=== PATIENT | male | born 1990 | race Caucasian/White ===

== ENCOUNTER 2022-03-13 10:07 | Emergency (ER) | payer SELFPAY ==
--- OUTSIDE RECORDS SUMMARY | 2022-03-13 10:10 | XMS REPORT | Continuity of Care Document ---
:1990 Author Organization [facility] t Address [address] [place] [place] [address] Care Team Providers Name Role Phone NONE, NONE Primary Care Physician Unavailable JOMAR FRANKS Attending Clinician Unavailable THEA DYE Attending Clinician Unavailable DR KEISHA FINCH Attending Clinician Unavailable EDDOC, GENERIC FOR EDM Attending Clinician Unavailable Physician, No Primary or Family Admitting Clinician Unavaila ble JOMAR FRANKS Admitting Clinician Unavailable THEA DYE Admitting Clinician Unavailable DR KEISHA FINCH Admitting Clinician Unavailable Payers Payer Name Policy Type Policy Number Effective Date Expiration Date S ource [id number] 1957 00:00:00 [id number] 1957 00:00:00 Problems Condition Condition Condition Status Onset Resolution Last Treating Co mments Source Name Details Category Date Date Treatment Clinician Date Neck pain Neck pain Problem [facility] (LUF/LI V/SA) Back pain Back pain Problem [facility] l (LUF/LI V/SA) Rash Rash Disease [facility] l Non-suicid Non-suicid Disease Active [facility] al self al self 06-15 st harm harm 00:00: Hospita 00 l 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, disorder, 00:00: Hosp patrick mild, mild, 00 l abuse abuse Nicotine Nicotine Disease Recurre Meth jone use use nce 06-14 st disorder disorder 00:00: Hospit a 00 l BILAT BILAT Problem Active [facility] FLANK PAIN FLANK PAIN Jhoana kes Memoria l (LUF/LI V/SA) Hemorrhoid Hemorrhoid Problem Active [facility] (LUF/LI V/SA) Allergies, Adverse Reactions, Alerts Allergy Allergy Status Severity Reaction(s) Onset Inactive Treating Comm ents Source Name Type Date Date Clinician Amoxicil Propensi Active [facility] to 04-01 st Clavulan adverse 00:00: Hospita ate reaction 00 l s to drug Ciproflo Propensi Active Anaphylaxis M ethodi xacin ty to 04-01 st adverse 00:00: Hospita reaction 00 l s to drug No Known DA Active Unknown [facility] Allergie 00:00: Memoria s 00 l (LUF/LI V/SA) clavulan DA Active [facility] acid 4[facility]04 Clear 00:00: [place] 00 [facility] amoxicil DA Active [facility] 4[facility]04 Clear 00:00: Duarte 00 [facility] clavulan DA Active U UNKNOWN [facility] ic acid 4-04 Clear 00:00: Duarte [facility] amoxicil DA Active U UNKNOWN [facility] 4-04 Clear 00:00: Duarte 00 [facility] Social History Social Habit Start Date Stop Date Quantity Comments Source History of tobacco Smokes tobacco [facility] use daily Hospital Alcohol intake 2017-10-28 2017-10-28 Current [employer] 00:00:00 00:00:00 non-drinker of Hospital alcohol (finding) Cigarettes smoked 2017-06-13 2017-06-[address] current (pack per 00:00:00 00:00:00 Hospita l day) - Reported Tobacco use and 2017-06-13 2017-06-13 User of smokeless [facility] exposure 00:00:00 00:00:00 tobacco Hospital Sex Assigned At [birth year] [employer] 00:00:00 00:00:00 Hospital Smoking Status Start Date Stop Date Source [facility] (LUF/SHALINI/SA) Smokes tobacco daily 2017-06-13 00:00:00 [facility] Medications Ordered Filled Start Stop Current Ordering Indication Dosage Frequency Signature Comments Components Source Medication Medication Date Date Medication? Clinician (SIG) Name Name No known No No known Metho di medications 10-[address] 21:20: s Hospita 43 l cephalexin cephalexin Yes 500mg 3xD [facility] 500 [facility] 500 mg [facility] capsule capsule Memoria l (LUF/LI V/SA) cephalexin cephalexin Yes 500mg [facility]xD [facility] 500 mg 500 mg [facility] capsule capsule Memoria l (LUF/LI V/SA) hydrocortis hydrocortis Yes [address] one acetate one acetate L ukes 10 MG/ML / 10 MG/ML / Mem oria pramoxine pramoxine l hydrochlori hydrochlori ( LUF/LI de 10 MG/ML de 10 MG/ML V /SA) Rectal Foam Rectal Foam ondansetron ondansetron Yes 4mg 3xD [facility] 4 mg 4 mg [facility] disintegrat disintegrat M emoria ing tablet ing tablet l (LUF/LI V/SA) polyethylen polyethylen Yes 17g [facility]xD [facility] e glycol e glycol [facility] 3350 [id number] Mem oria MG Powder MG Powder l for Oral for Oral (LUF/LI Solution Solution V/SA) silver silver Yes [address] sulfadiazin sulfadiazin L ukes e 10 MG/ML e 10 MG/ML Mem oria Topical Topical l Cream Cream (LUF/LI V/SA) tramadol tramadol Yes 50mg [address]xD [facility] hydrochlori hydrochlori L ukes de 50 MG de 50 MG Memoria Oral Tablet Oral Tablet l (LUF/LI V/SA) tramadol tramadol Yes 50mg [facility]xD [facility] hydrochlori hydrochlori L ukes de 50 MG de 50 MG Memoria Oral Tablet Oral Tablet l (LUF/LI V/SA) cephalexin cephalexin Yes 500mg 3xD orally [facility] 500 mg 500 mg every 8 [facility] capsule capsule hours (for Mem oria 7 days) l (LUF/LI V/SA) cephalexin cephalexin Yes 500mg 2xD orally [facility] 500 mg 500 mg every 12 [facility] capsule capsule hours Memoria l (LUF/LI V/SA) hydrocortis hydrocortis Yes 1 4xD rectally [address] one acetate one acetate times per [facility] 10 MG/ML / 10 MG/ML / day as M emoria pramoxine pramoxine needed. l hydrochlori hydrochlori (as needed (LUF/LI de 10 MG/ML de 10 MG/ML for V /SA) Rectal Foam Rectal Foam hemorrhoid s) ondansetron ondansetron Yes 4mg 3xD orally [facility] 4 mg 4 mg every 8 [facility] disintegrat disintegrat hours as Memoria ing tablet ing tablet needed. l (for (LUF/LI nausea/vom V/SA) iting) polyethylen polyethylen Yes 17g 1xD orally [facility] e glycol e glycol daily [facility] 3350 [id number] [id number] Mem oria MG Powder MG Powder l for Oral for Oral (LUF/LI Solution Solution V/SA) silver silver Yes [address] [facility] sulfadiazin sulfadiazin 2 times [facility] e 10 MG/ML e 10 MG/ML per day Memoria Topical Topical (apply a l Cream Cream 1.5 mm (LUF/LI thickness) V/SA) tramadol tramadol Yes 50mg 3xD orally [facility] t hydrochlori hydrochlori every 8 [facility] de 50 MG de 50 MG hours as Mem oria Oral Tablet Oral Tablet needed. l (as needed (LUF/LI for pain) V/SA) tramadol tramadol Yes 50mg 3xD orally [facility] t hydrochlori hydrochlori every 8 [facility] de 50 MG de 50 MG hours as Mem oria Oral Tablet Oral Tablet needed. l (as needed (LUF/LI for pain) V/SA) Vital Signs Vital Name Observation Time Observation Value Comments Source Height 2021-12-12 16:55:00 177.8 CM Weight 2021-12-12 16:55:00 117.3 KG Height 2021-12-04 18:35:00 177.8 CM Weight 2021-12-04 18:35:00 109.09 KG Height 2021-10-25 05:11:00 180.34 CM Weight 2021-10-25 05:11:00 113.39 KG Height 2021-10-16 08:22:00 180.34 CM Weight 2021-10-16 08:22:00 108.86 KG Height 2021-10-15 04:02:00 170.18 CM Weight 2021-10-15 04:02:00 108.86 KG Height 2020-04-28 06:54:00 177.8 CM Weight 2020-04-28 06:54:00 95.25 KG Height 2019-08-02 12:22:00 177.8 CM Weight 2019-08-02 12:22:00 108.86 KG Body Temperature 2021-12-12 16:55:00 97.9 [degF] [facility] (LUF/SHALINI/SA) Pulse Rate 2021-12-12 16:55:00 103 /min [facility] (LUF/SHALINI/SA) Respiratory Rate 2021-12-12 16:55:00 18 /min [facility] (F/SHALINI/SA) O2% BldC Oximetry 2021-12-12 16:55:00 97 % [facility] (LUF/SHALINI/SA) BP Systolic 2021-12-12 16:55:00 113 mm[Hg] [facility] (LUF/SHALINI/SA) BP Diastolic 2021-12-12 16:55:00 78 mm[Hg] [facility] (LUF/SHALINI/SA) Height 2021-12-12 16:55:00 70 [in_i] [facility] (LUF/SHALINI/SA) Weight 2021-12-12 16:55:00 117.3 kg [facility] (LUF/SHALINI/SA) BMI (Body Mass Index) 2021-12-12 16:55:00 37.4 kg/m2 [facility] (LUF/SHALINI/SA) Body Temperature 2021-12-04 18:35:00 98.7 [degF] [facility] (LUF/SHALINI/SA) Pulse Rate 2021-12-04 18:35:00 109 /min [facility] (LUF/SHALINI/SA) Respiratory Rate 2021-12-04 18:35:00 20 /min [facility] (LUF/SHALINI/SA) O2% BldC Oximetry 2021-12-04 18:35:00 97 % [facility] (LUF/SHALINI/SA) BP Systolic 2021-12-04 18:35:00 137 mm[Hg] [facility] (LUF/SHALINI/SA) BP Diastolic 2021-12-04 18:35:00 75 mm[Hg] [facility] (LUF/SHALINI/SA) Height 2021-12-04 18:35:00 70 [in_i] [facility] (LUF/SHALINI/SA) Weight 2021-12-04 18:35:00 109.09 kg [facility] (LUF/SHALINI/SA) BMI (Body Mass Index) 2021-12-04 18:35:00 34.8 kg/m2 [facility] (LUF/SHALINI/SA) Body Temperature 2021-10-25 05:11:00 97.9 [degF] [facility] (LUF/SHALINI/SA) Pulse Rate 2021-10-25 05:11:00 103 /min [facility] (LUF/SHALINI/SA) Respiratory Rate 2021-10-25 05:11:00 18 /min [facility] (LUF/SHALINI/SA) O2% BldC Oximetry 2021-10-25 05:11:00 95 % [facility] (LUF/SHALINI/SA) BP Systolic 2021-10-25 05:11:00 154 mm[Hg] [facility] (LUF/SHALINI/SA) BP Diastolic 2021-10-25 05:11:00 96 mm[Hg] [facility] (LUF/SHALINI/SA) Height 2021-10-25 05:11:00 71 [in_i] [facility] (LUF/SHALINI/SA) Weight 2021-10-25 05:11:00 250 [lb_av] [facility] (LUF/SHALINI/SA) BMI (Body Mass Index) 2021-10-25 05:11:00 34.9 kg/m2 [facility] (LUF/SHALINI/SA) Body Temperature 2021-10-16 08:22:00 98 [degF] [facility] (LUF/SHALINI/SA) Pulse Rate 2021-10-16 08:22:00 90 /min [facility] (LUF/SHALINI/SA) Respiratory Rate 2021-10-16 08:22:00 18 /min [facility] (LUF/SHALINI/SA) O2% BldC Oximetry 2021-10-16 08:22:00 98 % [facility] (LUF/SHALINI/SA) BP Systolic 2021-10-16 08:22:00 107 mm[Hg] [facility] (LUF/SHALINI/SA) BP Diastolic 2021-10-16 08:22:00 76 mm[Hg] [facility] (LUF/SHALINI/SA) Height 2021-10-16 08:22:00 71 [in_i] [facility] (LUF/SHALINI/SA) Weight 2021-10-16 08:22:00 240 [lb_av] [facility] (LUF/SHALINI/SA) BMI (Body Mass Index) 2021-10-16 08:22:00 33.5 kg/m2 [facility] (LUF/SHALINI/SA) Pulse Rate 2020-04-28 09:03:00 119 /min [facility] (LUF/SHALINI/SA) Respiratory Rate 2020-04-28 09:03:00 16 /min [facility] (LUF/SHALINI/SA) O2% BldC Oximetry 2020-04-28 09:03:00 97 % [facility] (LUF/SHALINI/SA) BP Systolic 2020-04-28 09:03:00 133 mm[Hg] [facility] (LUF/SHALINI/SA) BP Diastolic 2020-04-28 09:03:00 76 mm[Hg] [facility] (LUF/SHALINI/SA) Body Temperature 2020-04-28 06:54:00 99.8 [degF] [facility] (LUF/SHALINI/SA) Height 2020-04-28 06:54:00 70 [in_i] [facility] (LUF/SHALINI/SA) Weight 2020-04-28 06:54:00 210 [lb_av] [facility] (LUF/SHALINI/SA) BMI (Body Mass Index) 2020-04-28 06:54:00 30.4 kg/m2 [facility] (LUF/SHALINI/SA) Procedures This patient has no known procedures. Encounters Start End Encounter Admission Attending Care Care Encounter Source Date/Time Date/Time Type Type Clinicians Facility Department ID 2019-11-30 Inpatient [facility] [id number] [facility] 11:06:00 [facility] 2019-11-29 Inpatient [facility] [id number] [facility] 21:14:00 48 [facility] 2021-12-12 2021-12-12 PROC&TX 1 JOMAR FRANKS ST[facility] EMD [id number] 16:28:00 18:19:00 NOT [facility] OUT PT l LEAVE (LUF/LI V/SA) 2021-12-12 2021-12-12 Inpatient [facility] [id number] [facility] 00[facility]:00 [facility] [id number] [place], [id number] [id number] [place], ([place] [address] 2021-12-12 2021-12-12 Inpatient [facility] [id number] 00:00:00 00:00:00 [facility] [id number] Winsome N, [address] [id number] [address] [id number] l [place]PASS, (LUF/[place] [address] 2021-12-04 2021-12-04 BURN 1 THEA DYE [facility] [id number] 18:33:00 20:12:00 [facility] LT FOOT N, [address] l ENC [place], (LUF/[place] [address] 2021-12-04 2021-12-04 Inpatient [facility] [id number] [facility] 00:00:00 [facility] [id number] [facility] N, [address] [id number] [address] [id number] l [place], (LUF/[place] [address] 2021-12-04 2021-12-04 Inpatient [facility] [id number] [facility] 00:00:00 [facility] [id number] [facility] N, [address] [id number] [address] [id number] l [place], (LUF/[place] [address] 2021-10-25 2021-10-25 HEADACHE 1 THEA DYE [facility] EMD [id number] [facility] [facility] St 05:10:00 06:53:00 UNSPECIFIE Lucio es D Memoria l (LUF/LI V/SA) 2021-10-25 2021-10-25 Inpatient [facility] [id number] [facility] 00:[facility]00 00:00:00 [facility] [id number] [facility] N, [address] [id number] [address] [id number] l [place], (LUF/[place] [address] 2021-10-16 2021-10-16 CERVICALGI 1 THEA DYE [facility] EMD [id number] 08:21:00 09:41:00 A [facility] (LUF/LI V/SA) 2021-10-16 2021-10-16 Inpatient [facility] [id number] 00:00:00 00:00:00 [facility] [id number] [facility] N, [address] [id number] [id number] l [place], (LUF/[place] [address] 2021-10-16 2021-10-16 Inpatient [facility] [id number] [facility] 00:[facility]:00 00:00:00 DOLLY CALLE [id number] [facility] N, [address] [id number] [address] [id number] l [place], (LUF/[place] [address] 2021-10-15 2021-10-15 Emergency 1 STEF [facility] EMD [id number] 03:48:00 06:04:00 KEISHA [facility] (LUF/LI V/SA) 2020-04-28 2020-04-28 DORSALGIA 1 DYETHEA [facility] EMD [id number] 06:52:00 09:06:00 UNSPECIFIE Lucio es D Memoria l (LUF/LI V/SA) 2020-04-28 2020-04-28 Inpatient [facility] [id number] 00:00:00 00:00:00 [facility] [id number] [facility] N, [address] [id number] [address] [id number] l [place]PASS, (LUF/[place] [address] 2019-11-30 2019-11-30 Outpatient EDDOC, [facility] [id number] [facility] 14:46:00 14:46:[address] 2019-08-02 2019-08-02 Emergency 1 [facility] EMD [id number] 12:21:00 12:21:00 [facility] (LUF/LI V/SA) Results Test Description Test Time Test Comments Results Result Comments Source COVID EXTENDED PANEL 2021-10-25 06:27:00 Test Item Value Reference Range Interpretation Comme nts COVID-19, Real Time PCR-SALENA (test code = Negative Negative N COVID) FT (test code = FLUAPCR) Negative (qualifier value) Negative N FT (test code = FLUBPCR) Negative (qualifier value) Negative N FT (test code = RSV) Negative (qualifier value) Negative N FIRST TEST: (test code = COVO.FT) U EMPLOYEE IN HEALTHCARE: (test code = U COVO.EMP) SYMPTOMATIC DEFINED BY CDC: (test code = U COVO.SYMPH) HOSPITALIZED: (test code = COVO.HOSP) U ADMITTED TO ICU: (test code = COVO.ICU) U RESIDENT IN CONGREGATE CARE (test code = U COVO.MO) : (test code = COVO.PREG) Not [id number] 05:32:00 Test Item Value Reference Range Interpretation Comments Ammonia (test code = EDMUND) 30 umol/L 9-33 [id number] 05:19:00 Test Item Value Reference Range Interpretation Comments Glucose (test code 118 mg/dl 75-110 H = GLU) BUN (test code = 13.0 mg/dl 6.0-17.0 BUN) Creatinine (test 0.9 mg/dl 0.4-1.2 code = CREA) Sodium (test code = 140 mmol/l 137-145 NA) Anion Gap (test 7 mmol/l 5-15 code = GAP) Potassium (test 3.8 mmol/l 3.5-5.0 code = K) Chloride (test code 108 mmol/l 98-107 H = CL) CO2 (test code = 25 mmol/l 22-30 CO2) Calcium (test code 9.4 mg/dl 8.4-10.2 = CALC) T Protein (test 8.0 gm/dl 5.1-8.7 code = TP) Albumin (test code 3.9 gm/dl 3.5-4.6 = ALB) A/G Ratio (test 1.0 % 1.1-2.2 L code = AGRAT) AST (SGOT) (test 20 U/L 11-36 code = AST) ALT (SGPT) (test 32 U/L 11-40 code = ALT) Alkaline Phos (test 62 U/L 47-114 code = ALKP) Total Bilirubin 0.5 mg/dl 0.2-1.2 (test code = TBIL) Globulin (test code 4.1 gm/dl 2.3-3.5 H = GLOBU) Calcium, Corrected 9.5 mg/dl 8.4-10.2 Various f ormulas exist (test code = for corrected s alejandra CALCCORR) calcium results , each yielding differ ent values. This co rrected result was base d on the formula: Co rrected Calcium = Serum Calcium + [0.8 * ( 4 - SerumAlbumin)] EGFR if >60 [place] (test code mL/min/1.73m\\ = EGFRAA) S\\2 EGFR if Non- >60 Estimate d Glomerular [place] (test code mL/min/1.73m\\ Filtrat ion Rate (eGFR) = EGFRNA) S\\2 Reference Inter vals Decision Points for 18 years and older and average body ma ss: >= 60 Does not exc lude kidney disease. 30 - 59 Suggests mod erate chronic kidney disease and indicates t he need for further investigation including asses sment of proteinuria and cardiovascular factors. < 30 U sually indicates a nee d for referral for assessment and management of c hronic kidney failure. STLMLCORONAVIRUS 2018 CEPHEID [id number] 05:10:00 Test Item Value Reference Range Interpretation Comments COVID-19, Real Time PCR-SALENA (test NEGATIVE Negative AA code = COVID) FIRST TEST: (test code = COVO.FT) U EMPLOYEE IN HEALTHCARE: (test code = U COVO.EMP) SYMPTOMATIC DEFINED BY CDC: (test U code = COVO.SYMPH) HOSPITALIZED: (test code = U COVO.HOSP) ADMITTED TO ICU: (test code = U COVO.ICU) RESIDENT IN CONGREGATE CARE (test U code = COVO.MO) : (test code = COVO.PREG) k [place] [facility] This test is performed for stat results in [facility]STLMLACETAMINOPHEN (Tyenol)2021-10-15 05:04:00 Test Item Value Reference Range Interpretation Comments Acetaminophen (test code = ACET) <2 ug/ml 10-25 L [id number] 05:04:00 Test Item Value Reference Range Interpretation Comments Magnesium (test code = MG) 1.9 mg/dl 1.6-2.6 STLMLALCOHOL, [id number] 05:04:00 Test Item Value Reference Range Interpretation Comments Alcohol % (test code = 0 % 0.00-0.00 N Kiko ol % 0.00 - 0.10 ALCPC) Sub-clinical 0. 11 - 0.20 Emotional Insta bility 0.21 - 0.30 Confusio n 0.31 - 0.40 Stupor 0.4 1 - 0.50 Coma >.50 Fatal STLMLHIGH SENSITIVITY [id number] 05:03:00 Test Item Value Reference Range Interpretation Comments HIGH SENSITIVITY 3.1 ng/L 0.0-53.0 CHANGE IN T EST METHOD TROPONIN (test code = Tanja lizama in the test TNIH) method for Trop onin has gone into e ffect. We now test for High Sensitivity Tro ponin. The new units o f measure are pg/ mL, and the new 99th percentile cuto ff of 34 pg/mL for FE MALE and 53 pg/mL fo r MALE. New critical va lues will be called for any troponin greate r than or equal to 500 pg/mL. STLMLSALICYLATES (Aspirin)2021-10-15 05:02:00 Test Item Value Reference Range Interpretation Comments Salicylate (test code <1.7 mg/dl 0.0-30.0 N Salicy lates Reference = SALI) Ranges: [place] utic 15 - 30 mg/dl [place] >30 mg/dl [place] l >70 mg/dl STLMLDRUG SCREEN [id number] 04:49:00 Test Item Value Reference Range Interpretation Comments PH (test code = 7.5 UPH) Specific [place] 1.020 (test code = USPGR) Amphetamines (test Positive code = AMPHET) FT (test code = Negative TANIA) (qualifier value) FT (test code = Negative BENZO) (qualifier value) FT (test code = Negative NEVAEH) (qualifier value) FT (test code = Negative MTD) (qualifier value) FT (test code = Negative OPIAT) (qualifier value) FT (test code = Negative The followin g table PCP) (qualifier provides an value) interpretive gu christian for the Drugs o f Abuse ran on [employer] [place] analyzer listed there in: Amphetamine s < 1000 ng/ml = Ne gative Barbituates < 2 00 ng/ml = Negativ e Benzodiazapines < 200 ngml = Negative Cocaine < 300 n g/ml = Negative Methad one < 300 ng/ml = Neg ative Opiate < 300 ng /ml = Negative PCP < 25 ng/ml = Negativ e THC < 50 ng/ml = Ne gative Results equal t o or greater than th e above cut-off v alues = Presumptive Positive. Confirmation of Presumptive Pos itive results are niesha ilable upon request. FT (test code = Negative THC) (qualifier value) STLMLURINALYSIS WITH [id number] 04:44:00 Test Item Value Reference Range Interpretation Comments Color (test code = Yellow UCOLR) Clarity (test code = Clear UCLAR) Glucose (test code = NEGATIVE NEGATIVE N UGLUC) Bilirubin (test code NEGATIVE NEGATIVE N = UBILI) Ketones (test code = 15 NEGATIVE A UKET) Specific [place] 1.020 1.005-1.030 A (test code = USPGR) Blood (test code = NEGATIVE NEGATIVE N UBLD) PH (test code = UPH) 7.5 4.5-8.0 A Protein (test code = NEGATIVE NEGATIVE N UPROT) Urobilinogen (test 0.2 See_Comment N [Automat ed code = U UROB) message] The system which generated this result transmit carlos reference range : 0.2. The refere nce range was not u sed to interpret th is result as normal/abnormal . Nitrite (test code = NEGATIVE NEGATIVE N UNITR) Leukocyte Esterase NEGATIVE NEGATIVE N (test code = ULEUK) WBC (test code = 0-3 NONE,0-1,2-5,6-1 AA WBCUR) 0 RBC (test code = 0-2 0-5 A RBCUR) Epithial Cells (test 0-3 0-10 A code = U EPI) Mucous (test code = Moderate None Seen A UMUC) Bacteria (test code 1+ None Seen,Trace A = UBACT) Crystals Urine (test Trace Amorphous None Seen A code = URCRYS) Urates STLMLCBC WITH AUTO [id number] 04:43:00 Test Item Value Reference Range Interpretation Comments WBC (test code = 11.30 4.80-10.80 H WBC) 10\\S\\3/ul RBC (test code = 4.90 10\\S\\6/ul 4.70-6.10 RBC) Hemoglobin (test 14.3 gm/dl 14.0-18.0 code = HGB) Hematocrit (test 41.3 % 42.0-50.0 L code = HCT) MCV (test code = 84.3 fL 80.0-94.0 MCV) MCH (test code = 29.2 pg 27.0-31.0 MCH) MCHC (test code = 34.6 gm/dl 33.0-37.0 MCHC) RDW (test code = 12.3 % 11.5-14.5 RDWVC) Platelet (test code 247 10\\S\\3/ul 130-400 = PLT) MPV (test code = 10.0 fL 7.4-10.4 A "NOT MEASUR ED" MPV) RESULTS ARE DIS PLAYED WHEN THE INSTRU MENT HAS A SUPPRESSE D OR UNREPORTABLE RE SULT. THIS WILL MOST OFTEN HAPPEN WITH THE MPV WHEN THERE IS A N ABNORMAL PLATEL ET DISTRIBUTION DU E TO A CRITICAL LOW VA LUE OR PLATELET CLUMPI NG. THE RDW MAY BE SUPPRESSED IF T HERE ARE MULTIPLE PE AKS PRESENT ON THE RBC HISTOGRAM. IN T HIS CASE, A MANUAL REVIEW OF THE SLIDE WI LL BE PERFORMED, AND RBC MORPHOLOGY WILL BE NOTED ON THE RE PORT. NE% (test code = 90.1 % 42.0-75.0 H NE) LY% (test code = 6.0 % 13.0-42.0 L LY) MO% (test code = 3.3 % 4.0-14.0 L MO) EO% (test code = 0.0 % 1.0-5.0 L EO) BA% (test code = 0.2 % 0.0-3.0 BA) IG% (test code = 0.4 % 0.0-0.4 IG%) [facility] HEAD W/O [id number] 04:30:57 [facility]/SA)Name: MACARENA WAN : 1990 Sex: MEXAMINATION: Head CT without contrast.HISTORY:Altered mental status, headache.COMPARISON:CT head from 06/23/2011.TECHNIQUE: Multidetector axial images were obtained from the foramen magnum tothe vertex without contrast. The images were reconstructed using brain and bonealgorithms. Thin section brain images were reformatted into coronal andsagittal planes.Dose modulation, iterative reconstruction, and/or weight based adjustment of themA/kV was utilized to reduce radiation dose to as low as reasonably achievable.Intravenous contrast: NoneIMAGE QUALITY: Acceptable.FINDINGS:Skull/scalp: No lytic or blastic. lesions. No surgical changes.Parenchyma: No abnormal density.No acute hemorrhage, mass or acute major vascular territorial infarct.Arteries: No density suggestive of thrombosis.Dural sinuses:No abnormal density suggestive of thrombosis.Ventricles: No hydrocephalus or displacement.Extra-axial spaces: No abnormal density.Brain volume: Normal for age.Craniocervical junction: No mass, Chiari malformation, or basilarinvagination.Sella: No mass.Paranasal/mastoid sinuses: Imaged portions unremarkable.IMPRESSION:No acute intracranial abnormality.This final report was electronically signed by Dr Jenny Thomas MD :25 AMDictated By: OCTAVIO THOMASADate: 10/15/2021 04:25STLMLCT ABDOMEN/PELVIS W/O CONTRAST 2020-04-28 08:48:50 [facility] [place]Name: MACARENA WAN : [id number] Sex: MEXAM: CT Abdomen and Pelvis WITHOUT contrastINDICATION: [id number]: Flank painCOMPARISON: CT a bdomen and pelvis dated June 23, 2011.TECHNIQUE: Abdomen and pelvis were scanned utilizing a multidetector helicalscanner from the lung base to the pubic symphysis without administration of IVcontrast. Absence of intravenous contrast decreases sensitivity for detection offocal lesions and vascular pathology. Coronal and sagittal reformations wereobtained. Routine protocol was performed.IV CONTRAST: NoneORAL CONTRAST: WaterCOMPLICATIONS: NoneRADIATION DOSE:Total DLP: 1382 mGy-cm.Estimated effective dose: (DLP x 0.015 x size factor) mSvCTDIvol has been reviewed. It is below the limits set by the Radi ationProtocol Committee (RPC).FINDINGS:LINES and TUBES: None.LOWER THORAX: UnremarkableHEPATOBILIARY: No focal hepatic lesions seen within the limitation ofnoncontrast exam. No biliary ductal dilation.GALLBLADDER: There is questionable 0.8 cm gallbladder polyp (sister, image 26).No radio-opaque stones or sludge. No gallbladder wall thickening.SPLEEN: No splenomegaly..PANCREAS: The unenhanced pancreasshows no focal masses. There is no ductaldilatation.ADRENALS: The adrenal glands are unremarkable.KIDNEYS/URETERS: No hydronephrosis. There is a right renal subcentimetercortical low-density lesion (series 2, image 37) too small to characterize. Nostones.GI TRACT: No abnormal distention, wall thickenin g, or evidence of bowelobstruction.PELVIC ORGANS/BLADDER: Unremarkable.LYMPH NODES: No lymphadenopathy.VESSELS: Vessels are incompletely evaluated due to lack of IV contrast. Howeverno definite aneurysm seen.PERITONEUM / RETROPERITONEUM: No free air or fluid.BONES: There is anterior wedging of T9 vertebral body of uncertain etiology.SOFT TISSUES: Unremarkable.IMPRESSION:1. No CT finding to correlate with the patient's flank pain. No evidence ofurolithiasis or hydronephrosis.2. Right renal subcentimeter cortical low- density lesion is too small tocharacterize.3. Anterior wedging of T9 vertebral body of uncertain etiology. This could bedue to old trauma. If clinically indicated this can be further evaluated withnonemergent CT thoracic spine.This final report was electronically signed by Dr Davian Elizondo MD04/28/2020 8:43 AMDictated By: Zina ELIZONDOte: 04/28/2020 08:43[facility]IVINGSTONURINALYSIS WITH [id number] 08:22:00 Test Item Value Reference Range Interpretation Comments Color (test code = UCOLR) Yellow Clarity (test code = UCLAR) Clear Glucose (test code = UGLUC) NEGATIVE NEGATIVE N Bilirubin (test code = UBILI) NEGATIVE NEGATIVE N Ketones (test code = UKET) NEGATIVE NEGATIVE N Specific [place] (test code = 1.015 1.005-1.030 A USPGR) Blood (test code = UBLD) NEGATIVE NEGATIVE N PH (test code = UPH) 6.0 4.5-8.0 A Protein (test code = UPROT) NEGATIVE NEGATIVE N Urobilinogen (test code = U UROB) 0.2 >0.2 N Nitrite (test code = UNITR) NEGATIVE NEGATIVE N Leukocyte Esterase (test code = NEGATIVE NEGATIVE N ULEUK) WBC (test code = WBCUR) 0-1 0-5 A RBC (test code = RBCUR) None Seen 0-5 A Epithial Cells (test code = U EPI) None Seen 0-10 A Mucous (test code = UMUC) None Seen None Seen N Bacteria (test code = UBACT) Trace None Seen,Trace N [facility] [id number] 15:31:00 Test Item Value Reference Range Interpretation Comments STREPTOCOCCUS DYSGALACTIAE NEGATIVE FOR G/C NEGATIVE (test code = STREPGC) STREPA MOLECULAR (test NEGATIVE FOR GRP A NEGATIVE code = STREPAMOL) [id number] 14:47:00 Test Item Value Reference Range Interpretation Comments CKMB (test code = CKMBT) 4.0 ng/mL 0-6.0 N URINALYSIS [id number] 13:26:00 Test Item Value Reference Range Interpretation Comments UA COLOR (test code = COLU) YELLOW YELLOW UA APPEARANCE (test code = CLEAR CLEAR APPU) UA GLUCOSE DIPSTICK (test NEGATIVE mg/dL NEGATIVE code = DGLUU) UA BILIRUBIN DIPSTICK (test NEGATIVE mg/dL NEGATIVE code = BILU) UA KETONE DIPSTICK (test code 40 (2+) mg/dL NEGATIVE A = KETU) UA SPECIFIC GRAVITY (test 1.024 1.001-1.035 code = SGU) UA BLOOD DIPSTICK (test code Negative mg/dL NEGATIVE = PRADIP) UA PH DIPSTICK (test code = 5.5 5.0-8.0 DARREN) UA PROTEIN DIPSTICK (test NEGATIVE mg/dL NEGATIVE code = PROU) UA UROBILINIOGEN DIPSTICK Normal mg/dL NEGATIVE (test code = URO) UA NITRITE DIPSTICK (test NEGATIVE NEGATIVE code = RADHA) UA LEUKOCYTE ESTERASE W NEGATIVE Ritesh/uL NEGATIVE REFLEX (test code = LEUUR) UA WBC (test code = WBCU) 0-5 per HPF 0-5 UA RBC (test code = RBCU) 0-2 #/HPF 0-5 UA EPITHELIAL CELLS (test FEW per HPF FEW code = EPIU) UA BACTERIA (test code = NONE SEEN #/HPF NONE BACU) UA HYALINE CAST (test code = 0-2 #/LPF 0-5 HYALU) UA MUCUS (test code = MUCU) FEW #/LPF FEW Urine Source? Clean CatchDRUGS OF ABUSE SCREEN [id number] 13:26:00 Test Item Value Reference Range Interpretation Comments URN COCAINE (test NEGATIVE <300 ng/mL code = COCAURN) URN CANNABINOIDS NEGATIVE <50 ng/mL (test code = CANNABURN) URN AMPHETAMINE (test POSITIVE <1000 ng/mL A This t est provides only a code = AMPHETURN) preliminar y test result. A morespecific alternate chemical method must be used in order t oobtain a confirmed rox tical result. Gas chromatography/ mass spectrometry (G C/MS) is thepreferred co nfirmatory method. Other c hemical confirmationmet hods are available. Clin ical consideration a nd professional ju dgment should be appli ed to any drug of abusete st result, particularly wh en preliminary pos itive resultsare used.Unconfirme d screening resul ts must not be used fornon-medical purposes (e.g., employme nt testing, legalt esting). URN BARBITURATE (test NEGATIVE <200 ng/mL code = BARBITURN) URN BENZODIAZEPINE NEGATIVE <200 ng/mL (test code = BENZOURN) URN OPIATES (test NEGATIVE <300 ng/mL code = OPIATURN) URN PHENCYCLIDINE NEGATIVE <25 ng/mL (PCP) (test code = PHENCURN) URN METHADONE (test NEGATIVE <300 ng/mL code = METHAURN) Urine Source? Clean Catch- XR CHEST 1 [id number] 13:06:00 FAX: Johnson Hnog NP [phone] [place]: St: REG Name: [facility]ARENA VILLELA [facility] : 1990 Age/S: 29/M [address] [facility] Unit #: [id number] Loc: [place] [address] Phys: Johnson Hong NP Acct: [id number] Dis Date: Status: REG ER PHONE #: [phone] Exam Date: 11/30/2019 1248 FAX #: [phone] Reason: CHEST PAIN EXAMS: CPT CODE: [id number] XR CHEST 1 V [id number] REASON FOR EXAM: CHEST PAIN Exam Order Date: 11/30/2019 11:13 AM Ordering M.D.: Johnson Hong NP PROCEDURE: - XR CHEST 1 V COMPARISON:Chest x-ray the previous night FINDINGS: The lungs are clear. There is no pleural effusion or pneumothorax. Pulmonary vascularity is within normal limits. Cardiomediastinal silhouette is normal in sizefor technique. The mediastinal contours are within normal limits. Musculoskeletal structures are within normal limits. The visualized upper abdomen is within normal limits. IMPRESSION: No acute cardiopulmonary process. Location: [facility] at 1306 Reported and signed by: Portillo Warren MD CC: Johnson Hong NP Technologist: Rachelle Michael) Trnmtrashid Date/Time/By: 11/30/2019 (0841) : By: Eleni.[email or web address] Orig Print D/T: S: 11/30/2019 (2676) PAGE 1 Signed ReportURINALYSIS COMPLETE 2019-11-30 13:05:00 Test Item Value Reference Range Interpretation Comments UA COLOR (test code = COLU) YELLOW YELLOW UA APPEARANCE (test code = CLEAR CLEAR APPU) UA GLUCOSE DIPSTICK (test NEGATIVE mg/dL NEGATIVE code = DGLUU) UA BILIRUBIN DIPSTICK (test NEGATIVE mg/dL NEGATIVE code = BILU) UA KETONE DIPSTICK (test code 40 (2+) mg/dL NEGATIVE A = KETU) UA SPECIFIC GRAVITY (test 1.024 1.001-1.035 code = SGU) UA BLOOD DIPSTICK (test code Negative mg/dL NEGATIVE = PRADIP) UA PH DIPSTICK (test code = 5.5 5.0-8.0 DARREN) UA PROTEIN DIPSTICK (test NEGATIVE mg/dL NEGATIVE code = PROU) UA UROBILINIOGEN DIPSTICK Normal mg/dL NEGATIVE (test code = URO) UA NITRITE DIPSTICK (test NEGATIVE NEGATIVE code = RADHA) UA LEUKOCYTE ESTERASE W NEGATIVE Ritesh/uL NEGATIVE REFLEX (test code = LEUUR) UA WBC (test code = WBCU) 0-5 per HPF 0-5 UA RBC (test code = RBCU) 0-2 #/HPF 0-5 UA EPITHELIAL CELLS (test FEW per HPF FEW code = EPIU) UA BACTERIA (test code = NONE SEEN #/HPF NONE BACU) UA HYALINE CAST (test code = 0-2 #/LPF 0-5 HYALU) UA MUCUS (test code = MUCU) FEW #/LPF FEW Urine Source? Clean CatchDRUGS OF ABUSE SCREEN [id number] 13:05:00 Test Item Value Reference Range Interpretation Comments URN COCAINE (test code = COCAURN) <300 ng/mL URN CANNABINOIDS (test code = <50 ng/mL CANNABURN) URN AMPHETAMINE (test code = AMPHETURN) <1000 ng/mL URN BARBITURATE (test code = BARBITURN) <200 ng/mL URN BENZODIAZEPINE (test code = <200 ng/mL BENZOURN) URN OPIATES (test code = OPIATURN) <300 ng/mL URN PHENCYCLIDINE (PCP) (test code = <25 ng/mL PHENCURN) URN METHADONE (test code = METHAURN) <300 ng/mL Urine Source? Clean CatchURINALYSIS [id number] 13:03:00 Test Item Value Reference Range Interpretation Comments UA COLOR (test code = COLU) YELLOW YELLOW UA APPEARANCE (test code = CLEAR CLEAR APPU) UA GLUCOSE DIPSTICK (test NEGATIVE mg/dL NEGATIVE code = DGLUU) UA BILIRUBIN DIPSTICK (test NEGATIVE mg/dL NEGATIVE code = BILU) UA KETONE DIPSTICK (test code 40 (2+) mg/dL NEGATIVE A = KETU) UA SPECIFIC GRAVITY (test 1.024 1.001-1.035 code = SGU) UA BLOOD DIPSTICK (test code Negative mg/dL NEGATIVE = PRADIP) UA PH DIPSTICK (test code = 5.5 5.0-8.0 DARREN) UA PROTEIN DIPSTICK (test NEGATIVE mg/dL NEGATIVE code = PROU) UA UROBILINIOGEN DIPSTICK Normal mg/dL NEGATIVE (test code = URO) UA NITRITE DIPSTICK (test NEGATIVE NEGATIVE code = RADHA) UA LEUKOCYTE ESTERASE W NEGATIVE Ritesh/uL NEGATIVE REFLEX (test code = LEUUR) UA WBC (test code = WBCU) per HPF 0-5 UA RBC (test code = RBCU) per HPF 0-5 UA EPITHELIAL CELLS (test per HPF Few code = EPIU) UA BACTERIA (test code = per HPF NONE BACU) Urine Source? Clean CatchDRUGS OF ABUSE SCREEN [id number] 13:03:00 Test Item Value Reference Range Interpretation Comments URN COCAINE (test code = COCAURN) <300 ng/mL URN CANNABINOIDS (test code = <50 ng/mL CANNABURN) URN AMPHETAMINE (test code = AMPHETURN) <1000 ng/mL URN BARBITURATE (test code = BARBITURN) <200 ng/mL URN BENZODIAZEPINE (test code = <200 ng/mL BENZOURN) URN OPIATES (test code = OPIATURN) <300 ng/mL URN PHENCYCLIDINE (PCP) (test code = <25 ng/mL PHENCURN) URN METHADONE (test code = METHAURN) <300 ng/mL Urine Source? Clean CatchB-TYPE NATRIURETIC [id number] 12:41:00 Test Item Value Reference Range Interpretation Comments B-TYPE NATRIURETIC PEPTIDE 57.38 pgram/mL 0-100 N (test code = BNP) BASIC METABOLIC [id number] 12:38:00 Test Item Value Reference Range Interpretation Comments SODIUM (test code = 147 mmol/L 136-145 H NA) POTASSIUM (test code 3.4 mmol/L 3.5-5.1 L = K) CHLORIDE (test code = 116.0 mmol/L 98-107 H CL) CARBON DIOXIDE (test 21.0 mmol/L 21-32 N code = CO2) ANION GAP (test code 13.4 10-20 N = GAP) GLUCOSE (test code = 80 mg/dL 74-106 N GLU) BLOOD UREA NITROGEN 18 mg/dL 7-18 N (test code = BUN) GLOMERULAR FILTRATION > 60 mL/min >=60 Estima carlos GFR by RATE (test code = using Vivien fied MDRD GFR) formula.Chronic kidney disease is defined as eith er kidney damageor GFR <60 mL/min/1.73 m2 for >3 months. CREATININE (test code 1.20 mg/dL 0.7-1.3 N = CREAT) BUN/CREATININE RATIO 15.1 10-20 N (test code = BUN/CREA) CALCIUM (test code = 8.2 mg/dL 8.5-10.1 L CA) [id number] 12:38:00 Test Item Value Reference Range Interpretation Comments TROPONIN-I (test code = TROPI) <0.015 ng/mL 0-0.045 N HEPATIC FUNCTION [id number] 12:31:00 Test Item Value Reference Range Interpretation Comments TOTAL PROTEIN (test 7.1 gram/dL 6.4-8.2 N code = PROT) ALBUMIN (test code = 3.9 g/dL 3.4-5.0 N ALB) GLOBULIN (test code = 3.2 gram/dL 2.7-4.2 N GLOB) ALBUMIN/GLOBULIN RATIO 1.2 0.75-1.50 N (test code = A/G) BILIRUBIN TOTAL (test 0.80 mg/dL 0.0-1.0 N code = BILT) BILIRUBIN DIRECT (test 0.25 mg/dL 0.0-0.20 H code = BILD) SGOT/AST (test code = 32 IUnit/L 15-37 N AST) SGPT/ALT (test code = 46 IUnit/L 12-78 N ALT) ALKALINE PHOSPHATASE 64 IUnit/L 45-117 N Note change in TOTAL (test code = reference range due ALKP) to change in reagent. LACTIC [id number] 12:30:00 Test Item Value Reference Range Interpretation Comments LACTIC ACID (test code = LACT) 0.8 mmol/L 0.4-1.9 N BASIC METABOLIC [id number] 12:29:00 Test Item Value Reference Range Interpretation Comments SODIUM (test code = NA) 147 mmol/L 136-145 H POTASSIUM (test code = K) 3.4 mmol/L 3.5-5.1 L CHLORIDE (test code = CL) 116.0 mmol/L 98-107 H CARBON DIOXIDE (test code = CO2) mmol/L 21-32 ANION GAP (test code = GAP) 10-20 GLUCOSE (test code = GLU) mg/dL 74-106 BLOOD UREA NITROGEN (test code = mg/dL 7-18 BUN) GLOMERULAR FILTRATION RATE (test mL/min >=60 code = GFR) CREATININE (test code = CREAT) mg/dL 0.7-1.3 BUN/CREATININE RATIO (test code 10-20 = BUN/CREA) CALCIUM (test code = CA) mg/dL 8.5-10.1 [id number] 12:29:00 Test Item Value Reference Range Interpretation Comments TROPONIN-I (test code = TROPI) ng/mL 0-0.045 CBC W/O [id number] 12:13:00 Test Item Value Reference Range Interpretation Comments WHITE BLOOD CELL (test code = 11.3 K/mm3 4.5-12.5 N WBC) RED BLOOD CELL (test code = 4.79 mill/mm3 4.0-5.8 N RBC) HEMOGLOBIN (test code = HGB) 13.9 gram/dL 13.0-17.5 N HEMATOCRIT (test code = HCT) 41.7 % 42.0-52.0 L MEAN CELL VOLUME (test code = 87.1 fL 80-98 N MCV) MEAN CELL HGB (test code = MCH) 29.0 picogram 27.0-33.0 N MEAN CELL HGB CONCETRATION 33.3 gram/dL 33.0-36.0 N (test code = MCHC) RED CELL DISTRIBUTION WIDTH 12.6 % 11.6-16.2 N (test code = RDW) PLATELET COUNT (test code = 197 K/mm3 150-450 N PLT) MEAN PLATELET VOLUME (test code 10.0 fL 6.7-11.0 N = MPV) CBC W/O [id number] 12:12:00 Test Item Value Reference Range Interpretation Comments WHITE BLOOD CELL (test code = K/mm3 4.5-12.5 WBC) RED BLOOD CELL (test code = RBC) mill/mm3 4.0-5.8 HEMOGLOBIN (test code = HGB) 13.9 gram/dL 13.0-17.5 N HEMATOCRIT (test code = HCT) % 42.0-52.0 MEAN CELL VOLUME (test code = fL 80-98 MCV) MEAN CELL HGB (test code = MCH) picogram 27.0-33.0 MEAN CELL HGB CONCETRATION (test gram/dL 33.0-36.0 code = MCHC) RED CELL DISTRIBUTION WIDTH % 11.6-16.2 (test code = RDW) PLATELET COUNT (test code = PLT) 197 K/mm3 150-450 N MEAN PLATELET VOLUME (test code fL 6.7-11.0 = MPV) - XR CHEST 1 [id number] 22:08:00 FAX: Jeremiah Helms MD [phone] [place]: [address]: REG Name: MACARENA VILLELA [facility] FSED : 1990 Age/S: 29/M [address] [facility] N Unit #: [id number] Loc: [place] [address] Phys: Jeremiah Helms MD [place], [place] [address] Acct: [id number] Dis Date: Status: REG ER PHONE #: Exam Date: 11/29/20192199 FAX #:Reason: CHEST PAIN EXAMS: CPT CODE: [id number] XR CHEST 1 V [id number] EXAM: - XR CHEST 1 V COMPARISON: 07/01/2013 LOCATION: H57 HISTORY: 29 years-old Male with CHEST PAIN FINDINGS: The cardiomediastinal silhouette is within normal limits. The lungs are well aerated. No large pneumothorax or pleural effusion. Osseous structures and soft tissues demonstrate no acute findings. The visualized upper abdomen is unremarkable. IMPRESSION: No acute cardiopulmonary abnormality. at 2208 Reported and signed by: Anjum Mosley M.D. CC: Jeremiah Helms MD Technologist: Dorothy Cullen Trnmtrd Date/Time/By: 11/29/2019 (2207) : By: Hina [email or web address] Orig Print D/T: S: 11/29/2019 (2210) PAGE 1 Signed ReportB-TYPE NATRIURETIC [id number] 21:50:00 Test Item Value Reference Range Interpretation Comments B-TYPE NATRIURETIC PEPTIDE (test 7.3 pg/mL 0-100 N code = BNP) BASIC METABOLIC [id number] 21:50:00 Test Item Value Reference Range Interpretation Comments SODIUM (test code = 147 mmol/L 128-145 H NA) POTASSIUM (test code 3.2 mmol/L 3.5-5.1 L = K) CHLORIDE (test code = 111.0 mmol/L 98-107 H CL) CARBON DIOXIDE (test 25.0 mmol/L 22-29 N code = CO2) ANION GAP (test code 14 mmol/L 10-20 N = GAP) GLUCOSE (test code = 91 mg/dL 70-110 N GLU) BLOOD UREA NITROGEN 18 mg/dL 7-22 N (test code = BUN) GLOMERULAR FILTRATION > 60 mL/min >=60 Estima carlos GFR by RATE (test code = using Vivien fied MDRD GFR) formula.Chronic kidney disease is defined as ei er kidney damageor GFR <60 mL/min/1.73 m2 for >3 months. CREATININE (test code 1.28 mg/dL 0.55-1.3 N = CREAT) BUN/CREATININE RATIO 14.1 10-20 N (test code = BUN/CREA) CALCIUM (test code = 8.4 mg/dL 8.0-10.5 N CA) HEPATIC FUNCTION [id number] 21:50:00 Test Item Value Reference Range Interpretation Comments TOTAL PROTEIN (test code = PROT) 6.9 gram/dL 6.1-7.8 N ALBUMIN (test code = ALB) 3.7 g/dL 3.3-4.4 N GLOBULIN (test code = GLOB) 3.2 G/DL 1-10 N ALBUMIN/GLOBULIN RATIO (test code 1.2 0.75-1.50 N = A/G) BILIRUBIN TOTAL (test code = 1.10 mg/dL 0.2-1.2 N BILT) BILIRUBIN DIRECT (test code = 0.20 mg/dL 0.0-0.30 N BILD) SGOT/AST (test code = AST) 28 U/L 10-39 N SGPT/ALT (test code = ALT) 55 U/L 10-69 N ALKALINE PHOSPHATASE TOTAL (test 56 U/L 50-139 N code = ALKP) [id number] 21:50:00 Test Item Value Reference Range Interpretation Comments LIPASE (test code = LIP) 62 Unit/L 144-286 L [id number] 21:50:00 Test Item Value Reference Range Interpretation Comments MAGNESIUM (test code = MAG) 2.2 mg/dL 1.4-2.2 N [id number] 21:50:00 Test Item Value Reference Range Interpretation Comments TROPONIN-I (test code = TROPI) <0.015 ng/mL 0.00-0.056 N CREATINE KINASE (CK)[id number] 21:50:00 Test Item Value Reference Range Interpretation Comments CREATINE KINASE (CK) (test code = CK) 389 U/L 39-308 H [id number] 21:48:00 Test Item Value Reference Range Interpretation Comments D-DIMER (test code = DDIMER) 119 ng/ml < 600 BASIC METABOLIC [id number] 21:46:00 Test Item Value Reference Range Interpretation Comments SODIUM (test code = 147 mmol/L 128-145 H NA) POTASSIUM (test code 3.2 mmol/L 3.5-5.1 L = K) CHLORIDE (test code = 111.0 mmol/L 98-107 H CL) CARBON DIOXIDE (test 25.0 mmol/L 22-29 N code = CO2) ANION GAP (test code 14 mmol/L 10-20 N = GAP) GLUCOSE (test code = 91 mg/dL 70-110 N GLU) BLOOD UREA NITROGEN 18 mg/dL 7-22 N (test code = BUN) GLOMERULAR FILTRATION > 60 mL/min >=60 Estima carlos GFR by RATE (test code = using Vivien fied MDRD GFR) formula.Chronic kidney disease is defined as eith er kidney damageor GFR <60 mL/min/1.73 m2 for >3 months. CREATININE (test code 1.28 mg/dL 0.55-1.3 N = CREAT) BUN/CREATININE RATIO 14.1 10-20 N (test code = BUN/CREA) CALCIUM (test code = 8.4 mg/dL 8.0-10.5 N CA) HEPATIC FUNCTION [id number] 21:46:00 Test Item Value Reference Range Interpretation Comments TOTAL PROTEIN (test code = PROT) gram/dL 6.4-8.2 ALBUMIN (test code = ALB) g/dL 3.4-5.0 GLOBULIN (test code = GLOB) G/DL 1-10 ALBUMIN/GLOBULIN RATIO (test code = 0.75-1.50 A/G) BILIRUBIN TOTAL (test code = BILT) mg/dL 0.0-1.0 BILIRUBIN DIRECT (test code = BILD) mg/dL 0.0-0.20 SGOT/AST (test code = AST) IUnit/L 15-37 SGPT/ALT (test code = ALT) IUnit/L 12-78 ALKALINE PHOSPHATASE TOTAL (test IUnit/L 45-117 code = ALKP) [id number] 21:46:00 Test Item Value Reference Range Interpretation Comments LIPASE (test code = LIP) U/L 73.0-393.0 [id number] 21:46:00 Test Item Value Reference Range Interpretation Comments MAGNESIUM (test code = MAG) mg/dL 1.8-2.4 [id number] 21:46:00 Test Item Value Reference Range Interpretation Comments TROPONIN-I (test code = TROPI) ng/mL 0-0.045 CBC W/O [id number] 21:35:00 Test Item Value Reference Range Interpretation Comments WHITE BLOOD CELL (test code = 8.6 K/mm3 4.5-12.5 N WBC) RED BLOOD CELL (test code = 4.65 mill/mm3 4.0-5.8 N RBC) HEMOGLOBIN (test code = HGB) 13.5 gram/dL 13.0-17.5 N HEMATOCRIT (test code = HCT) 39.5 % 42.0-52.0 L MEAN CELL VOLUME (test code = 84.9 fL 80-98 N MCV) MEAN CELL HGB (test code = MCH) 29.0 picogram 27.0-33.0 N MEAN CELL HGB CONCETRATION 34.2 gram/dL 33.0-36.0 N (test code = MCHC) RED CELL DISTRIBUTION WIDTH 12.1 % 11.6-16.2 N (test code = RDW) RED CELL DISTRIBUTION WIDTH SD 38.2 fL 37.0-51.0 N (test code = RDW-SD) PLATELET COUNT (test code = 184 K/mm3 150-450 N PLT) MEAN PLATELET VOLUME (test code 10.1 fL 6.7-11.0 N = MPV)
--- NOTE | 2022-03-13 10:55 | RAD REPORT ---
EXAM DESCRIPTION: RAD - Foot Left 3 View - 03/13/2022 10:47 am CLINICAL HISTORY: crush injury COMPARISON: No comparisons FINDINGS: No fracture, dislocation or periosteal reaction. No acute or destructive bony process. No air or foreign body in the soft tissues. IMPRESSION: Negative left foot examination.
--- NOTE | 2022-03-13 11:03 | EDPHYS ---
Physician Documentation [facility] Name: Ambrosio Wolff Age: 31 yrs Sex: Male : 1990 Arrival Date: 03/13/2022 Time: 10:07 Bed 12 Private MD: ED Physician Nick Leon HPI: 03/13 10:15 This 31 yrs old Male presents to ER via Wheelchair with complaints of Crush Injury To cp Foot. 10:15 The patient presents with a crush injury, cinder block. The complaints affect the left cp foot. Context: The problem was sustained at work, resulted from a heavy object falling, cinder block, the patient can fully bear weight, the patient is able to ambulate, with moderate difficulty. Onset: The symptoms/episode began/occurred this morning. 10:15 Associated signs and symptoms: The patient has no apparent associated signs or symptoms.cp Historical: - Allergies: 10:14 No Known Allergies; ld1 - PMHx: 10:14 None; ld1 - PSHx: 10:14 None; ld1 - Immunization history:: Adult Immunizations up to date, Client reports having NOT received the Covid vaccine. - Social history:: Smoking status: Patient reports the use of cigarette tobacco products, smokes one pack cigarettes per day. Patient/guardian denies using alcohol. ROS: 10:20 Constitutional: Negative for body aches, chills, fever, poor PO intake. cp 10:20 Neck: Negative for pain with movement, pain at rest, stiffness. cp 10:20 Cardiovascular: Negative for chest pain. 10:20 Respiratory: Negative for cough, shortness of breath, wheezing. 10:20 Abdomen/GI: Negative for abdominal pain, nausea, vomiting, and diarrhea. 10:20 Back: Negative for pain at rest, pain with movement. 10:20 MS/extremity: Positive for contusion, ecchymosis, pain, swelling, tenderness, of the dorsum of left foot, Negative for paresthesias. 10:20 Neuro: Negative for altered mental status, headache, numbness, tingling, weakness. 10:20 All other systems are negative. Exam: 10:25 Constitutional: The patient appears in no acute distress, alert, awake, non-toxic, well cp developed, well nourished, uncomfortable. 10:25 Head/Face: Normocephalic, atraumatic. cp 10:25 Chest/axilla: Inspection: normal. 10:25 Cardiovascular: Rate: normal, Rhythm: regular. 10:25 Respiratory: the patient does not display signs of respiratory distress, Respirations: normal, no use of accessory muscles, no retractions, labored breathing, is not present. 10:25 Back: pain, is absent, ROM is normal. 10:25 Musculoskeletal/extremity: Extremities: grossly normal except: noted in the dorsum of left foot: abrasion, ecchymosis, swelling, tenderness, There is no evidence of decreased ROM, deformity, Pulses: noted to be 2+ in the left dorsalis pedis artery, the left foot Sensation intact. no signs of compartment syndrome as left foot neurovascular intact, mild swelling. Vital Signs: 10:14 BP 136 / 77; Pulse 86; Resp 18; Temp 98.3(O); Pulse Ox 100% on R/A; Weight 117.93 kg; ld1 Height 5 ft. 11 in. (180.34 cm); Pain 8/10; 11:23 BP 129 / 76; Pulse 82; Resp 18; Pulse Ox 100% on R/A; Pain 2/10; ld1 10:14 Body Mass Index 36.26 (117.93 kg, 180.34 cm) ld1 MDM: 10:20 Patient medically screened. cp 11:00 Differential diagnosis: fracture, contusion, open fracture. cp 11:03 Data reviewed: vital signs, nurses notes, radiologic studies, plain films. cp 11:03 Test interpretation: by ED physician or midlevel provider: plain radiologic studies. cp Counseling: I had a detailed discussion with the patient and/or guardian regarding: the historical points, exam findings, and any diagnostic results supporting the discharge/admit diagnosis, radiology results, to return to the emergency department if symptoms worsen or persist or if there are any questions or concerns that arise at home. Response to treatment: the patient's symptoms have markedly improved after treatment, and as a result, I will discharge patient. ED course: VSS. Xrays negative for fracture. Will discharge to home for continued monitoring. Patient instructed to return to ED s/s of compartment syndrome. 03/13 10:13 Order name: XRAY Foot LEFT 3 View; Complete Time: 10:57 cp 03/13 10:57 Interpretation: Reviewed report. cp 03/13 11:00 Order name: Mauro Wrap; Complete Time: : cp 03/13 11:00 Order name: Crutches; Complete Time: cp Administered Medications: 10:16 Not Given (Patient Refused): Ibuprofen 800 mg PO once ld1 10:16 Not Given (Patient Refused): Tylenol 650 mg PO once ld1 11:14 Drug: Ibuprofen 800 mg Route: PO; ld1 11:22 Follow up: Response: No adverse reaction ld1 11:14 Drug: Hydrocodone-Acetaminophen (7.5 mg-325 mg) 1 tabs Route: PO; ld1 11:22 Follow up: Response: No adverse reaction ld1 Disposition Summary: 03/13/22 11:03 Discharge Ordered Location: Home cp Problem: new cp Symptoms: have improved cp Condition: Stable cp Diagnosis - Crushing injury of foot - left cp Followup: cp - With: Private Physician - When: 2 - 3 days - Reason: Worsening of condition Discharge Instructions: - Discharge Summary Sheet cp - RICE Therapy for Routine Care of Injuries cp - Crush Injury of the Foot cp Forms: - Medication Reconciliation Form cp - Thank You Letter cp - Antibiotic Education cp - Prescription Opioid Use cp Prescriptions: - Diclofenac Sodium 75 mg Oral Tablet Sustained Release - take 1 tablet by ORAL route 2 times per day; 30 tablet; Refills: 0, Product cp Selection Permitted Signatures: Dispatcher [employer] Edwin Driscoll PA PA cp Nasreen Haddad, RN RN ld1
--- NOTE | 2022-03-13 11:03 | ER ---
Nurse's Notes [facility] Name: Ambrosio Wolff Age: 31 yrs Sex: Male : 1990 Arrival Date: 03/13/2022 Time: 10:07 Bed 12 Private MD: Diagnosis: Crushing injury of foot-left Presentation: 03/13 10:14 Chief complaint: Patient states: Dropped cinder block on left foot this morning at ld1 work. Coronavirus screen: At this time, the client does not indicate any symptoms associated with coronavirus-19. Ebola Screen: No symptoms or risks identified at this time. Initial Sepsis Screen: Does the patient meet any 2 criteria? No. Patient's initial sepsis screen is negative. Does the patient have a suspected source of infection? No. Patient's initial sepsis screen is negative. Risk Assessment: Do you want to hurt yourself or someone else? Patient reports no desire to harm self or others. Onset of symptoms was March 13, 2022. 10:14 Method Of Arrival: Wheelchair ld1 10:14 Acuity: CHAVO 4 ld1 Triage Assessment: 10:14 General: Appears in no apparent distress. comfortable, Behavior is calm, cooperative, ld1 appropriate for age. Pain: Complains of pain in left foot Pain does not radiate. Pain currently is 8 out of 10 on a pain scale. Quality of pain is described as throbbing. EENT: No signs and/or symptoms were reported regarding the EENT system. Neuro: Level of Consciousness is awake, alert, obeys commands, Oriented to person, place, time, situation. Cardiovascular: Capillary refill < 3 seconds Patient's skin is warm and dry. Respiratory: Airway is patent Respiratory effort is even, unlabored. GI: Abdomen is flat, non-distended. : No signs and/or symptoms were reported regarding the genitourinary system. Derm: No signs and/or symptoms reported regarding the dermatologic system. Musculoskeletal: No signs and/or symptoms reported regarding the musculoskeletal system. Historical: - Allergies: 10:14 No Known Allergies; ld1 - PMHx: 10:14 None; ld1 - PSHx: 10:14 None; ld1 - Immunization history:: Adult Immunizations up to date, Client reports having NOT received the Covid vaccine. - Social history:: Smoking status: Patient reports the use of cigarette tobacco products, smokes one pack cigarettes per day. Patient/guardian denies using alcohol. Screenin:23 [facility] ED Fall Risk Assessment (Adult) History of falling in the last 3 months, ld1 including since admission No falls in past 3 months (0 pts). Humpty Dumpty Scale Fall Assessment Tool (age< 18yrs) Age 13 years and above (1 pt). Abuse screen: Denies threats or abuse. Denies injuries from another. Nutritional screening: No deficits noted. Tuberculosis screening: No symptoms or risk factors identified. Fall Risk No fall in past 12 months (0 pts). Assessment: 11:23 Reassessment: Patient appears in no apparent distress at this time. No changes from ld1 previously documented assessment. Patient and/or family updated on plan of care and expected duration. Pain level reassessed. Patient is alert, oriented x 3, equal unlabored respirations, skin warm/dry/pink. See triage assessment. Vital Signs: 10:14 BP 136 / 77; Pulse 86; Resp 18; Temp 98.3(O); Pulse Ox 100% on R/A; Weight 117.93 kg; ld1 Height 5 ft. 11 in. (180.34 cm); Pain 8/10; 11:23 BP 129 / 76; Pulse 82; Resp 18; Pulse Ox 100% on R/A; Pain 2/10; ld1 10:14 Body Mass Index 36.26 (117.93 kg, 180.34 cm) ld1 ED Course: 10:07 Patient arrived in ED. as 10:08 Edwin Spence PA is PHCP. cp 10:08 Nick Leon MD is Attending Physician. cp 10:14 Arm band placed on right wrist. ld1 10:15 Triage completed. ld1 10:49 XRAY Foot LEFT 3 View In Process Unspecified. EDMS 11:22 Nasreen Haddad, YOLANDA is Primary Nurse. ld1 11:23 Patient has correct armband on for positive identification. Placed in gown. Bed in low ld1 position. Call light in reach. Pulse ox on. NIBP on. Door closed. Noise minimized. 11:23 No provider procedures requiring assistance completed. Patient did not have IV access ld1 during this emergency room visit. Administered Medications: 10:16 Not Given (Patient Refused): Ibuprofen 800 mg PO once ld1 10:16 Not Given (Patient Refused): Tylenol 650 mg PO once ld1 11:14 Drug: Ibuprofen 800 mg Route: PO; ld1 11:22 Follow up: Response: No adverse reaction ld1 11:14 Drug: Hydrocodone-Acetaminophen (7.5 mg-325 mg) 1 tabs Route: PO; ld1 11:22 Follow up: Response: No adverse reaction ld1 Medication: 11:23 VIS not applicable for this client. ld1 Outcome: 11:03 Discharge ordered by MD. weinberg 11:23 Discharged to home ambulatory, with crutches. ld1 11:23 Condition: stable 11:23 Discharge instructions given to patient, Instructed on discharge instructions, follow up and referral plans. 11:25 Patient left the ED. ld1 Signatures: Dispatcher [employer] Ni Maxwell Corey, PA PA cp Dibbern, Lauren, RN RN ld1
[2022-03-13] MEDS ORDERED: IBUPROFEN 400 MG TAB ONE (11:18)
[2022-03-13] MEDS ORDERED: HYDROCODONE/APAP 7.5/325 MG TAB ONE (11:18)
[2022-03-13 11:32] VITALS: BP 129/76; TEMP 98.3; O2SAT 100
== END 2022-03-13 11:25 | disposition home or self-care (01) ==
LOC: ER 10:07
DX: S97.82XA Crushing injury of left foot, initial encounter (principal)
CPT/HCPCS: 99283